=== PATIENT | female | born 1990 | race Caucasian/White ===

== ENCOUNTER → 2019-03-10 12:33 | Outpatient (BNVA) | payer MEDICAID, SELFPAY | PROVIDERS: Family Provider Physician Assistant Medical; PCP Physician Assistant Medical; Visit Provider Counselor Professional | DX: F43.12 Post-traumatic stress disorder, chronic (principal); Z63.8 Other specified problems related to primary support group | CPT/HCPCS: 90791 ==

== ENCOUNTER → 2019-03-21 14:46 | Outpatient (BNVA) | payer MEDICAID, SELFPAY | PROVIDERS: Family Provider Physician Assistant Medical; PCP Physician Assistant Medical; Visit Provider Counselor Professional | DX: F43.10 Post-traumatic stress disorder, unspecified (principal); Z62.29 Other upbringing away from parents | CPT/HCPCS: 90834 ==

== ENCOUNTER → 2019-04-03 13:51 | Outpatient (BNVA) | payer MEDICAID, SELFPAY | PROVIDERS: Family Provider Physician Assistant Medical; PCP Physician Assistant Medical; Visit Provider Counselor Professional | DX: F43.10 Post-traumatic stress disorder, unspecified (principal); Z62.898 Other specified problems related to upbringing | CPT/HCPCS: 90834 ==

== ENCOUNTER → 2019-04-20 08:49 | Outpatient (BNVA) | payer MEDICAID, SELFPAY | PROVIDERS: Family Provider Physician Assistant Medical; PCP Physician Assistant Medical; Visit Provider Psychiatry & Neurology Psychiatry | DX: F43.12 Post-traumatic stress disorder, chronic (principal); F44.9 Dissociative and conversion disorder, unspecified; F60.3 Borderline personality disorder | CPT/HCPCS: 99204 ==

== ENCOUNTER → 2019-04-21 14:09 | Outpatient (BNVA) | payer MEDICAID, SELFPAY | PROVIDERS: Family Provider Physician Assistant Medical; PCP Physician Assistant Medical; Visit Provider Counselor Professional | DX: F43.12 Post-traumatic stress disorder, chronic (principal); F44.9 Dissociative and conversion disorder, unspecified; F60.9 Personality disorder, unspecified | CPT/HCPCS: 90834 ==

== ENCOUNTER → 2019-04-27 11:41 | Outpatient (BNVA) | payer MEDICAID, SELFPAY | PROVIDERS: Family Provider Physician Assistant Medical; PCP Physician Assistant Medical; Visit Provider Counselor Professional | DX: F60.3 Borderline personality disorder (principal); F44.9 Dissociative and conversion disorder, unspecified; F43.12 Post-traumatic stress disorder, chronic | CPT/HCPCS: 90834 ==

== ENCOUNTER → 2019-05-04 15:47 | Outpatient (BNVA) | payer MEDICAID, SELFPAY | PROVIDERS: Family Provider Physician Assistant Medical; PCP Physician Assistant Medical; Visit Provider Counselor Professional | DX: F60.3 Borderline personality disorder (principal) | CPT/HCPCS: 90834 ==

== ENCOUNTER → 2019-05-18 08:48 | Outpatient (BNVA) | payer MEDICAID, SELFPAY | PROVIDERS: Family Provider Physician Assistant Medical; PCP Physician Assistant Medical; Visit Provider Counselor Professional | DX: F60.3 Borderline personality disorder (principal); F44.9 Dissociative and conversion disorder, unspecified; F43.12 Post-traumatic stress disorder, chronic | CPT/HCPCS: 90832 ==

== ENCOUNTER → 2019-06-02 09:00 | Outpatient (BNVA) | payer MEDICAID, SELFPAY | PROVIDERS: Family Provider Physician Assistant Medical; PCP Physician Assistant Medical; Visit Provider Counselor Professional | DX: F60.3 Borderline personality disorder (principal); F44.9 Dissociative and conversion disorder, unspecified; F43.12 Post-traumatic stress disorder, chronic | CPT/HCPCS: 90832 ==

== ENCOUNTER → 2019-10-17 09:04 | Outpatient (BNVA) | payer MEDICAID, SELFPAY | PROVIDERS: Family Provider Physician Assistant Medical; PCP Physician Assistant Medical; Visit Provider Counselor Professional | DX: F60.3 Borderline personality disorder (principal); F44.9 Dissociative and conversion disorder, unspecified; F43.12 Post-traumatic stress disorder, chronic | CPT/HCPCS: 90832 ==